=== PATIENT | male | born 1990 | race Two or more races ===

== ENCOUNTER 2022-01-10 11:43 | Emergency (ER) | payer MEDICAID, OTHER ==
[~2022-01-10] VITALS: Ht 182.9 cm; Wt 72.0 kg
[2022-01-10 12:00] VITALS: BP 137/97
[2022-01-10] MEDS ORDERED: cefTRIAXone SOD 1,000 MG VL IM ONE (13:45)
[2022-01-10] MEDS ORDERED: methylPREDNISolone SOD SUCC 125 MG/2 ML VL IM ONE (13:45)
[2022-01-10] MEDS ORDERED: AZIT500T66 PO (14:02)
[2022-01-10] MEDS ORDERED: LIDO2SOL23 MT (14:02)
== END 2022-01-10 14:15 | disposition home or self-care (01) ==
LOC: ER 11:43
DX: J03.90 Acute tonsillitis, unspecified (principal); F12.10 Cannabis abuse, uncomplicated
CPT/HCPCS: 96372; 99284; J0696; J2930